=== PATIENT | female | born 1970 | race Caucasian/White ===

== ENCOUNTER 2016-12-12 15:43 | Emergency (ER) | payer OTHER ==
[~2016-12-12] VITALS: Ht 182.9 cm; Wt 80.0 kg
[2016-12-12 15:47] VITALS: TEMP 36.6; Ht 182.9 cm; Wt 80.0 kg
--- NOTE | 2016-12-12 16:32 | EMERGENCY ROOM VISIT NOTE ---
History Report prepared by Rigo: Amador Martni Under the Supervision of: Dr. Esdras Simmons M.D. First contact with patient: 16:13 Chief Complaint: DIZZY Stated Complaint: DIZZINESS,VOMITING History of Present Illness The patient is a 46 year old female who presents to the Emergency Room with complaints of persistent dizziness beginning eleven and a half hours prior to arrival. She currently rates her discomfort as a 4/10 in severity. The patient associates nausea, vomiting, intermittent ringing in the ears, and arm and leg tingling with today's symptoms. She notes her symptoms worsen with sitting up. The patient states she attributes the tingling to lying in bed all day. She denies doing anything out of the ordinary. The patient denies experiencing anything like this in the past. She notes the dizziness came on suddenly at 0500 , when she believes she went to check her alarm. The patient states she has had normal bowel movements. The patient denies chest pain, shortness of breath, fever, abnormal vaginal bleeding or discharge, neck pain, back pain, weakness in arms or legs, and chance of . Source of History: patient, spouse/significant other Onset: eleven and a half hours prior to arrival Position: other (global) Symptom Intensity: 4/10 Quality: other (dizziness) Timing: other (persistent) Modifying Factors (Worsening): other (sitting up) Associated Symptoms: + nausea, + vomiting, No SOB, No back pain, No chest pain, No fevers, No neck pain, No weakness Note: Associated symptoms: intermittent ringing in the ears, arm and leg tingling Review of Systems See HPI for pertinent positives & negatives. A total of 10 systems reviewed and were otherwise negative. Past Medical & Surgical Medical Problems: (1) Inguinal hernia Old medical records were reviewed. Nurse's notes were reviewed and I agree with. Family History FHx: cancer Social History Smoking Status: Never Smoker Alcohol Use: none Drug Use: none Marital Status: Housing Status: lives with significant other Occupation Status: employed Current/Historical Medications Scheduled PRN Meclizine Hcl (Meclizine Hcl), 1 TAB PO Q8 PRN for Dizziness or Vertigo Allergies Coded Allergies: Cefaclor (Verified Allergy, Unknown, Unknown, 12/12/16) Physical Exam Vital Signs Date Time Temp Pulse Resp B/P Pulse Ox O2 Delivery O2 Flow Rate FiO2 12/12/16 19:30 53 20 115/58 99 12/12/16 18:38 50 14 119/62 98 Room Air 12/12/16 17:27 44 12 124/68 100 Room Air 12/12/16 16:23 57 12/12/16 15:47 36.6 58 16 126/77 100 Room Air Physical Exam General: Mildly ill-appearing. Middle aged female. Symptoms made worse with movement of eyes or head. HEENT: Normal cephalic atraumatic. Pupils are equal round and reactive to light. Extraocular movements are intact. There are a few small beats of horizontal nystagmus. No vertical nystagmus. Oropharynx is pink with moist mucous membranes. No swelling of the mouth lips or tongue. Neck: Supple with a midline trachea. No meningeal signs or stiffness, no JVD or bruits. No Stridor. Chest: Clear to auscultation bilaterally. No wheezes or rhonchi. No increased work of breathing. Heart: regular rate and rhythm. Abdomen: Soft nontender, nondistended without rebound guarding or rigidity. Extremities: No cyanosis clubbing or edema. No calf tenderness or assymetry Spine/Back. Non tender to palpation. No CVA tenderness Skin: Good turgor without rashes. Neurologic exam: Cranial nerves two through 12 are intact. Motor and sensation are intact and symmetrical throughout. No tremor. Finger to nose intact. No pronator drift. Medical Decision & Procedures ER Provider Diagnostic Interpretation: Radiology results as stated below per my review and radiologist interpretation: CHEST ONE VIEW PORTABLE CLINICAL HISTORY: Atypical chest pain COMPARISON STUDY: No previous studies for comparison. FINDINGS: The heart is at the upper limits of normal in size. There is no failure. There is no focal pulmonary consolidation. There are no pleural effusions. There is a mild thoracic scoliosis.[ IMPRESSION: No active disease in the chest. Electronically signed by: Lance Cotto M.D. 12/12/2016 5:[address] HEAD WITHOUT CONTRAST (CT) CLINICAL HISTORY: dizziness NAUSEA COMPARISON STUDY: No previous studies for comparison. TECHNIQUE: Axial CT of the brain is performed from the vertex to the skull base. IV contrast was not administered for this examination. CT DOSE: 623.48 mGy.cm FINDINGS: No intra or extra-axial mass lesions are visualized. There is no CT evidence of acute cortical infarction. There is no evidence of midline shift. There is no acute hemorrhage. No calvarial fractures are visualized. There are minimal white matter hypodensities likely on a small vessel basis. There is no evidence of pathologic ventricular dilatation. There is no evidence of acute sinusitis. There is mild mucosal thickening involving several ethmoid air cells. IMPRESSION: No acute intracranial findings Electronically signed by: Lance Cotto M.D. 12/12/2016 6:39 PM Laboratory Results 12/12/16 17:05 Red Blood Count 4.63, Mean Corpuscular Volume 88.1, Mean Corpuscular Hemoglobin 30.0, Mean Corpuscular Hemoglobin Concent 34.1, Mean Platelet Volume 11.7, Neutrophils (%) (Auto) 85.9, Lymphocytes (%) (Auto) 9.6, Monocytes (%) (Auto) 3.8, Eosinophils (%) (Auto) 0.4, Basophils (%) (Auto) 0.2, Neutrophils # (Auto) 7.04, Lymphocytes # (Auto) 0.79, Monocytes # (Auto) 0.31, Eosinophils # (Auto) 0.03, Basophils # (Auto) 0.02 12/12/16 17:05 Test 12/12/16 17:05 12/12/16 17:12 White Blood Count 8.20 K/uL (4.8-10.8) Red Blood Count 4.63 M/uL (4.2-5.4) Hemoglobin 13.9 g/dL (12.0-16.0) Hematocrit 40.8 % (37-47) Mean Corpuscular Volume 88.1 fL (80-100) Mean Corpuscular Hemoglobin 30.0 pg (25-34) Mean Corpuscular Hemoglobin Concent 34.1 g/dl (32-36) Platelet Count 208 K/uL (130-400) Mean Platelet Volume 11.7 fL (7.4-10.4) Neutrophils (%) (Auto) 85.9 % Lymphocytes (%) (Auto) 9.6 % Monocytes (%) (Auto) 3.8 % Eosinophils (%) (Auto) 0.4 % Basophils (%) (Auto) 0.2 % Neutrophils # (Auto) 7.04 K/uL (1.4-6.5) Lymphocytes # (Auto) 0.79 K/uL (1.2-3.4) Monocytes # (Auto) 0.31 K/uL (0.11-0.59) Eosinophils # (Auto) 0.03 K/uL (0-0.5) Basophils # (Auto) 0.02 K/uL (0-0.2) RDW Standard Deviation 44.1 fL (36.4-46.3) RDW Coefficient of Variation 13.7 % (11.5-14.5) Immature Granulocyte % (Auto) 0.1 % Immature Granulocyte # (Auto) 0.01 K/uL (0.00-0.02) Anion Gap 8.0 mmol/L (3-11) Est Creatinine Clear Calc Drug Dose 93.1 ml/min Estimated GFR () 91.4 Estimated GFR (Non- 78.8 BUN/Creatinine Ratio 13.8 (10-20) Calcium Level 8.9 mg/dl (8.5-10.1) Total Bilirubin 0.8 mg/dl (0.2-1) Direct Bilirubin mg/dl (0-0.2) Aspartate Amino Transf (AST/SGOT) 18 U/L (15-37) Alanine Aminotransferase (ALT/SGPT) 22 U/L (12-78) Alkaline Phosphatase 48 U/L (45-117) Total Protein 7.0 gm/dl (6.4-8.2) Albumin 3.6 gm/dl (3.4-5.0) Lipase 155 U/L (73-393) Human Chorionic Gonadotropin, Qual NEG (NEG) Chemistry Specimen Hemolysis Bedside Troponin I 0.000 ng/ml (0-0.045) Laboratory studies as stated above per my review. Medications Administered Medications (Trade) Dose Ordered Sig/Alesia Route Start Time Stop Time Status Last Admin Dose Admin Sodium Chloride 1,000 ml @ 999 mls/hr Q1H1M STAT IV 12/12/16 16:56 12/12/16 17:56 DC 12/12/16 17:24 999 MLS/HR Sodium Chloride (Nss 1000ml) 1,000 ml @ 200 mls/hr Q5H ONCE IV 12/12/16 16:56 12/12/16 19:51 DC 12/12/16 18:38 200 MLS/HR Ondansetron HCl (Zofran Inj) 4 mg NOW STAT IV 12/12/16 16:56 12/12/16 16:58 DC 12/12/16 17:23 4 MG Meclizine HCl (Antivert Tab) 25 mg NOW STAT PO 12/12/16 16:56 12/12/16 16:58 DC 12/12/16 17:23 25 MG Meclizine HCl (Antivert 25MG Home Pack) 1 homepack UD ONCE PO 12/12/16 19:15 12/12/16 19:16 DC 12/12/16 19:17 1 HOMEPACK ECG Indication: other (dizziness) Rate (beats per minute): 43 Rhythm: sinus bradycardia Findings: no acute ischemic change, no ectopy Comparison ECG Date: no prior available ED Course 1617: Past medical records reviewed. The patient was evaluated in room C10, and a complete history and physical examination were performed. 1655: Ordered Antivert Tab 25 mg PO, Zofran Inj 4 mg IV, Sodium Chloride 1,000 ml @ 200 mls/hr IV, Sodium Chloride 1,000 ml @ 999 mls/hr IV. 1852: Reevaluated the patient at this time, and she is resting comfortably. The patient was able to ambulate without difficulty. 1914: Ordered Meclizine HCl 1 homepack PO. 1916: Upon reevaluation, the patient is doing well. I discussed the results and treatment plan with him. He verbalized agreement of the treatment plan. The patient was discharged home. Medical Decision Differentials include, but are not limited to; vertigo, intracranial process, electrolyte or metabolic abnormalities, infection, trauma. This patient comes in as described above. She has symptoms consistent with peripheral vertigo. She has dizziness a came on abruptly it's worse with movement of her head or eyes. She appears uncomfortable. IV access was established. She was hydrated with a 1 L IV normal saline bolus. She was given Zofran 4 mg IV. She was given meclizine 25 mg by mouth an extensive work was obtained. She felt better and was able ambulate without difficulties. She has a normal neurologic exam. CAT scan of her head is unremarkable. She has no acute electrolyte or metabolic abnormalities. She was bradycardic on her EKG however is very fit and says this is baseline. She is normotensive with this I do not think these are likely causing her symptoms. He she has normal cardiac biomarkers. She feels good and would like to go home. She should rest and drink plenty fluids. She continue to use meclizine 25 mg every 8 hours if needed. She was warned that it could make her drowsy, do not take before drinking, driving, working. She should be careful getting up and down. She should return if: Worsening of symptoms, fever chills, chest pain, shortness of breath, numbness, weakness, any new problems concerns. She is happy with plan and discharged home Impression Primary Impression: Vertigo Additional Impression: Dizziness Scribe Attestation The scribe's documentation has been prepared under my direction and personally reviewed by me in its entirety. I confirm that the note above accurately reflects all work, treatment, procedures, and medical decision making performed by me. Departure Information Dispostion Home / Self-Care Prescriptions Meclizine Hcl (MECLIZINE HCL) 25 Mg Tab 1 TAB PO Q8 Y for Dizziness or Vertigo for 3 Days, #10 TAB Prov: Esdras Simmons M.D. 12/12/16 Referrals No Doctor, Assigned (PCP) Forms HOME CARE DOCUMENTATION FORM, IMPORTANT VISIT INFORMATION Patient Instructions My [facility] Additional Instructions Rest. Drink plenty of fluids. Be careful when getting up and down. Use meclizine (Antivert) 25 mg every 8 hours if needed for dizziness. Return if: Worsening of symptoms, chest pain, numbness or cweakness, fever or chills, any new problems or concerns. Follow-up with your doctor on Wednesday for recheck. Problem Qualifiers
[2016-12-12] MEDS ORDERED: SODIUM CHLORIDE 0.9% 1000ML 1,000 ML IV ONE (16:56)
[2016-12-12] MEDS ORDERED: ONDANSETRON INJ 2 MG/ML 2 ML VIAL IV STA (16:56)
[2016-12-12] MEDS ORDERED: SODIUM CHLORIDE 0.9% 1000ML 1,000 ML IV STA (16:56)
[2016-12-12] MEDS ORDERED: MECLIZINE HCL 25 MG TAB PO STA (16:56)
[2016-12-12 17:17] LABS: BASO % 0.2 %; BASO ABS # 0.02 K/uL (0-0.2); COMPLETE YES; EOS % 0.4 %; HEMATOCRIT 40.8 % (37-47); IG% 0.1 %; LYMPH % 9.6 %; LYMPH ABS # 0.79 K/uL (1.2-3.4); MEAN CELL VOLUME 88.1 fL (80-100); MEAN CORPUSCULAR HGB CONC 34.1 g/dl (32-36); MEAN PLATELET VOLUME 11.7 fL (7.4-10.4); MONO % 3.8 %; NEUT % 85.9 %; PLATELET COUNT 208 K/uL (130-400); RED BLOOD COUNT 4.63 M/uL (4.2-5.4)
--- NOTE | 2016-12-12 17:19 | DIAGNOSTIC IMAGING REPORT ---
CHEST ONE VIEW PORTABLE CLINICAL HISTORY: Atypical chest pain COMPARISON STUDY: No previous studies for comparison. FINDINGS: The heart is at the upper limits of normal in size. There is no failure. There is no focal pulmonary consolidation. There are no pleural effusions. There is a mild thoracic scoliosis.[ IMPRESSION: No active disease in the chest. Electronically signed by: Lance Cotto M.D. 12/12/2016 5:16 PM Dictated Date/Time: 12/12/2016 5:16 PM
[2016-12-12 17:41] LABS: ALKALINE PHOSPHATASE 48 U/L (45-117); ALT/SGPT 22 U/L (12-78); AST/SGOT 18 U/L (15-37); BLOOD UREA NITROGEN 12 mg/dl (7-18); BUN/CREATININE RATIO 13.8 (10-20); CALCIUM 8.9 mg/dl (8.5-10.1); CARBON DIOXIDE 24 mmol/L (21-32); CHLORIDE 109 mmol/L (98-107); CREATININE 0.89 mg/dl (0.60-1.20); GLUCOSE 108 mg/dl (70-99); SODIUM 141 mmol/L (136-145)
--- NOTE | 2016-12-12 18:41 | DIAGNOSTIC IMAGING REPORT ---
CT HEAD WITHOUT CONTRAST (CT) CLINICAL HISTORY: dizziness NAUSEA COMPARISON STUDY: No previous studies for comparison. TECHNIQUE: Axial CT of the brain is performed from the vertex to the skull base. IV contrast was not administered for this examination. CT DOSE: 623.48 mGy.cm FINDINGS: No intra or extra-axial mass lesions are visualized. There is no CT evidence of acute cortical infarction. There is no evidence of midline shift. There is no acute hemorrhage. No calvarial fractures are visualized. There are minimal white matter hypodensities likely on a small vessel basis. There is no evidence of pathologic ventricular dilatation. There is no evidence of acute sinusitis. There is mild mucosal thickening involving several ethmoid air cells. IMPRESSION: No acute intracranial findings Electronically signed by: Lance Cotto M.D. 12/12/2016 6:39 PM Dictated Date/Time: 12/12/2016 6:38 PM
[2016-12-12] MEDS ORDERED: MECL1TAB42 PO (19:10)
[2016-12-12] MEDS ORDERED: MECLIZINE HCL 25MG HOME PACK PO ONE (19:15)
[2016-12-12 19:16] LABS: PREG INTERNAL NEGATIVE QC NEG CLEAR BACKGROUND; PREG INTERNAL POSITIVE QC POS CONTROL LINE
[2016-12-12 19:30] VITALS: BP 115/58; PULSE 53; O2SAT 99
== END 2016-12-12 19:30 | disposition home or self-care (01) ==
LOC: C.EDB 15:44 → C.EDC 19:30
DX: R42 Dizziness and giddiness (principal); K40.90 Unilateral inguinal hernia, without obstruction or gangrene, not specified as recurrent